=== PATIENT | female | born 1950 | race Caucasian/White ===

== ENCOUNTER 2021-12-21 08:21 | Emergency (ER) | payer MEDICARE, OTHER, SELFPAY ==
[2021-12-21 08:30] VITALS: BP 204/94; PULSE 75; RESP 18; TEMP 37.2; O2SAT 98; BMI 25.7
--- NOTE | 2021-12-21 08:34 | ED_ITS ---
HPI - Extremity Injury (Lower) General Time Seen by Provider: 08:34 Date Seen: 12/21/21 Chief Complaint: Extremity Pain/Injury, Lower Stated Complaint: Fall right leg injury Time Seen by Provider: 12/21/21 08:33 Source: patient and RN notes reviewed Mode of arrival: wheelchair Limitations: no limitations History of Present Illness HPI Narrative: Patient was up overnight at the kitchen sink, caught her right foot on a rug and went down. She denies hitting her head, no loss of consciousness, there was no other reasons such is cardiac or respiratory issues causing this. She states it hurts inside the knee when she tries to bear weight. Ankle is hurting some as well and she will get a sharp pain into her right big toe when she attempts to bear weight. It does not hurt into the thigh or hip on that side. She states she can press on the knee externally and can not find a painful area but when she attempts to bear weight, she will feel pain within the knee itself. She states she has a rib out again. She had been to the chiropractor yesterday and had a put back in place. She is denying any difficulty breathing. No shortness of breath. Did offer to do a chest x-ray but she is declining this. Related Data Home Medications Medication Instructions Recorded Confirmed latanoprost 0.005 % eye drops drp 12/21/21 Allergies Allergy/AdvReac Type Severity Reaction Status Date / Time codeine AdvReac Intermediate Verified 12/21/21 08:37 Review of Systems Status of ROS: Reports: 6 or more systems reviewed and unremarkable except as noted in History and below [facility] [place] Medical History (Updated 12/21/21 @ 10:41 by Carlita Truong MD) Glaucoma Social History Smoking Status: Never smoker How often do you have a drink containing alcohol: never AUDIT-C Alcohol total score: 0 Non-prescribed substance use: denies use Exam Const: Vital Signs, click to edit/add: Vital Signs - 24 hr 12/21/21 08:30 Temperature 98.9 F Pulse Rate [Pulse Oximeter] 75 Respiratory Rate 18 Blood Pressure [Le ft Upper Arm] 204/94 H Pulse Oximetry 98 Oxygen Delivery Me thod Room Air Documenting provider has reviewed patient's vital signs: yes Common normals: no apparent distress, average body habitus, oriented x3, no limitations, healthy appearing and alert General appearance: cooperative, comfortable and well kempt HENMT: Common normals: normocephalic, head/scalp atraumatic, hearing grossly normal bilaterally and external ears normal Head and scalp: normocephalic and atraumatic External ear: external ears normal Eye: Common normals: PERRL, EOMs intact bilaterally, conjunctivae normal and no scleral icterus Conjunctiva: conjunctiva(e) normal Pupil: PERRL Neck & C-Spine: Common normals: full ROM, no lymphadenopathy, supple, no meningeal signs, no JVD and thyroid normal Thyroid: thyroid normal Chest: Common normals: inspection of chest normal and palpation of chest normal Resp: Common normals: normal respiratory effort, no retractions, no use of accessory muscles and clear to auscultation bilaterally Auscultation: clear to auscultation bilaterally Cardio: Common normals: no JVD, regular rate, regular rhythm, S1 normal heart sound, S2 normal heart sound, no gallops, no clicks and no murmurs Rate: regular rate Rhythm: regular rhythm Heart sounds: S1 normal and S2 normal GI: Common normals: Normal to inspection, nondistended, normoactive bowel sounds present, soft to palpation, non-tender, no hepatosplenomegaly, no masses and no bruits Palpation: soft and no hepatosplenomegaly Extremity: Common normals: normal to inspection, no joint enlargement, no clubbing, cyanosis or edema, no calf tenderness and no pedal edema (Head on by lateral compression stockings, removed her right.) Other: No pain on palpation of the greater trochanter on the right, gentle range of motion of the hip joint elicits no pain. I can palpate down her right thigh and it is not painful. I can palpate around her right knee without any discomfort. Palpating down her tib-fib reveals no palpable tenderness, ankles without any palpable tenderness and has good range of motion, no swelling. Right foot without any palpable tenderness, I can mobilize her right toe without any pain. However when she tries to stand, she tells me she has pain with in the knee itself, feels pain into the ankle and gets a sharp pain into the right toe. There is no visible or palpable effusions, no ecchymosis. There is no redness. Neuro: Common normals: oriented x3 and no sensory deficits noted Se nsorium/orientation: alert Meningeal signs: no meningeal signs Psych: Appearance: well kempt Course Course Hospital Course: We will obtain imaging of her right lower extremity from the knee down to the foot. Reevaluation(s) Reevaluation #1: Have reviewed x-ray imaging results with patient and her . On re- evaluation she is absolutely not tender over this 5th metatarsal or any metatarsal whatsoever. She states she will get dizzy in type pain that goes into the 1st toe but it goes away. No history of peripheral neuropathy on questioning. Her knee is feeling weak and like it could give out. We discussed that there can be cartilage and intra-articular damage that is not necessarily going to show up on x-ray. She has a walker at home and was using it to try to get around this morning. She baseline does not use it. Am going to have her try a knee immobilizer and see how she does walking with a walker here. Time: 10:16 Vital Signs Vital signs: Initial Vital Signs Temperature 98.9 F 12/21/21 08:30 Temperature Source Temporal Artery Scan 12/21/21 08:30 Pulse Rate 75 12/21/21 08:30 Respiratory Rate 18 12/21/21 08:30 Blood Pressure 204/94 H 12/21/21 08:30 Blood Pressure Mean 130 12/21/21 08:30 Blood Pressure Position Supine 12/21/21 08:30 Pulse Oximetry 98 12/21/21 08:30 Oxygen Delivery Method 12/21/21 08:30 Vital Signs Temperature 98.9 F 12/21/21 08:30 Pulse Rate 75 12/21/21 08:30 Respiratory Rate 18 12/21/21 08:30 Blood Pressure 204/94 H 12/21/21 08:30 Pulse Oximetry 98 12/21/21 08:30 Oxygen Delivery Method 12/21/21 08:30 Temperature 98.9 F 12/21/21 08:30 Pulse Rate 75 12/21/21 08:30 Respiratory Rate 18 12/21/21 08:30 Blood Pressure 204/94 H 12/21/21 08:30 Pulse Oximetry 98 12/21/21 08:30 Oxygen Delivery Method 12/21/21 08:30 MDM - Extremity Injury (Lower) Imaging Data X-ray right foot: Attestation: I have reviewed the pertinent imaging results. My impression: On my preliminary review, do not appreciate definitive fracture Radiologist's impression: Patient: OMARI LEIVA Facility:?[facility] Patient ID:?[id number] Site Patient ID:?[id number]. Site :?[id number] Study:?XRay Extremity Right FOOT 3V-12/21/2021 9:28:17 AM Ordering Physician:Kassidy Zazueta Final Report: INDICATION: Trauma; pain right foot. COMPARISON: Non technique three-view study right foot. FINDINGS: Subtle undisplaced fracture through the base of the 5th metatarsal. No other abnormalities are identified. Dictated by Abhilash Simmons MD @ 12/21/2021 9:35:30 AM (Electronic Signature) X-ray right ankle: Attestation: I have reviewed the pertinent imaging results. My impression: My preliminary review of her right ankle, do not appreciate a fracture, await Radiology over-read. Radiologist's impression: Patient: OMARI LEIVA Facility:?[facility] Patient ID:?[id number] Site Patient ID:?[id number]. Site :?[id number] Study:?XRay Extremity Right ANKLE 3V-12/21/2021 9:28:44 AM Ordering Physician:Kassidy Zazueta Final Report: INDICATION: Fall. TECHNIQUE: Three views of the right knee. Three views of the right ankle. COMPARISON: None. FINDINGS: Diffuse demineralization. Right knee: No dislocation or acute fracture. Mild medial compartment joint space narrowing. No joint effusion. Right ankle: 5th metatarsal base nondisplaced fracture, better visualized on earlier same day foot radiographs. No dislocation or additional fracture. Ankle mortise congruent. The tibiotalar joint space is maintained. Small vessel atherosclerotic calcifications. IMPRESSION: 1. Right 5th metatarsal base nondisplaced fracture, better visualized on earlier same-day foot series. 2. No additional acute osseous abnormality. Dictated by Enoch Lamas MD @ 12/21/2021 9:37:56 AM Dictated by: Enoch Lamas MD @ 12/21/2021 09:38:15 (Electronic Signature) X-ray right knee: Attestation: I have reviewed the pertinent imaging results. My impression: On my preliminary review, do not appreciate fracture, await Radiology over-read. Radiologist's impression: Patient: OMARI LEIVA Facility:?[facility] Patient ID:?[id number] Site Patient ID:?[id number]. Site :?[id number] Study:?XRay Knee Right 3V-12/21/2021 9:29:09 AM Ordering Physician:Kassidy Zazueta Final Report: INDICATION: Fall. TECHNIQUE: Three views of the right knee. Three views of the right ankle. COMPARISON: None. FINDINGS: Diffuse demineralization. Right knee: No dislocation or acute fracture. Mild medial compartment joint space narrowing. No joint effusion. Right ankle: 5th metatarsal base nondisplaced fracture, better visualized on earlier same day foot radiographs. No dislocation or additional fracture. Ankle mortise congruent. The tibiotalar joint space is maintained. Small vessel atherosclerotic calcifications. IMPRESSION: 1. Right 5th metatarsal base nondisplaced fracture, better visualized on earlier same-day foot series. 2. No additional acute osseous abnormality. Dictated by Enoch Lamas MD @ 12/21/2021 9:37:56 AM Dictated by: Enoch Lamas MD @ 12/21/2021 09:38:05 (Electronic Signature) Critical Care Time Critical Care Time Critical Care Time: No Discharge Plan Discharge Clinical Impression: Acute internal derangement of knee Patient Disposition: Home, Self-Care Condition: Stable Instructions: Knee Pain (ED) Additional Instructions: Use knee immobilizer for stability of the knee. Use walker and knee immobilizer for safe ambulation. You are going to need to follow-up with your primary care provider this next week for re-evaluation and consideration of further imaging and possibly orthopedic referral. Ice and elevate your knee for pain as needed. Tylenol 1000 mg 3 times a day as needed for pain. Activity Level: Activity as Tolerated Prescriptions: No Action latanoprost 0.005 % drops Label Comments: PLACE 1 DROP INTO BOTH EYES EVERY EVENING Follow Up/Referrals: Nestor Maxwell MD [Referring] - Stand Alone Forms: [facility] Info Instructions
--- NOTE | 2021-12-21 08:45 | CRLHL7_ITS ---
For Patients: As a result of the Century Cures Act, medical imaging exams and procedure reports are released immediately into your electronic medical record. You may view this report before your referring provider. If you have questions, please contact your health care provider. INDICATION: Fall. TECHNIQUE: Three views of the right knee. Three views of the right ankle. COMPARISON: None. FINDINGS: Diffuse demineralization. Right knee: No dislocation or acute fracture. Mild medial compartment joint space narrowing. No joint effusion. Right ankle: 5th metatarsal base nondisplaced fracture, better visualized on earlier same day foot radiographs. No dislocation or additional fracture. Ankle mortise congruent. The tibiotalar joint space is maintained. Small vessel atherosclerotic calcifications. IMPRESSION: 1. Right 5th metatarsal base nondisplaced fracture, better visualized on earlier same-day foot series. 2. No additional acute osseous abnormality. Dictated by Enoch Lamas MD @ 12/21/2021 9:37:56 AM Dictated by: Enoch Lamas MD @ 12/21/2021 09:38:05 (Electronically Signed)
--- NOTE | 2021-12-21 08:46 | CRLHL7_ITS ---
For Patients: As a result of the Cures Act, medical imaging exams and procedure reports are released immediately into your electronic medical record. You may view this report before your referring provider. If you have questions, please contact your health care provider. INDICATION: Trauma; pain right foot. COMPARISON: Non technique three-view study right foot. FINDINGS: Subtle undisplaced fracture through the base of the 5th metatarsal. No other abnormalities are identified. Dictated by Abhilash Simmons MD @ 12/21/2021 9:35:30 AM (Electronically Signed)
--- NOTE | 2021-12-21 10:34 | ED.NURSE ---
knee immobilizer placed on R leg. pt able to take a few steps with walker. states it is too soon. it hurts. I just want to go home. pt states has walker she can sit on at home and grab bars she can use. they can just push me.
== END 2021-12-21 11:08 | disposition home or self-care (01) ==
PROVIDERS: Emergency Provider Family Medicine; PCP Family Medicine
DX: M23.91 Unspecified internal derangement of right knee (principal); S89.81XA Other specified injuries of right lower leg, initial encounter; W18.09XA Striking against other object with subsequent fall, initial encounter; Y93.9 Activity, unspecified; Y92.010 Kitchen of single-family (private) house as the place of occurrence of the external cause; Y99.8 Other external cause status
CPT/HCPCS: 73562; 73610; 73630; 99283